=== PATIENT | male | born 1985 | race American Indian/Alaskan Native ===

== ENCOUNTER 2021-02-20 19:26 | Emergency (ER) | payer SELFPAY ==
[2021-02-20] MEDS ORDERED: ACETAMINOPHEN 500 MG TAB PO ONE (20:33)
[2021-02-20] MEDS ORDERED: IBUPROFEN 800 MG TAB PO ONE (20:33)
[2021-02-20] MEDS ORDERED: dexAMETHasone 20 MG/5 ML VIAL IV ONE (21:49)
[2021-02-20] MEDS ORDERED: AMPICILLIN/SULBACTA 3GM/100ML 3 GM/100 ML BAG IV ONE (21:49)
--- NOTE | 2021-02-20 21:52 | Emergency Department Report ---
ED General Adult HPI - General Chief complaint: Sore Throat Stated complaint: SORE THROAT Time Seen by Provider: 02/20/21 21:40 Source: patient Mode of arrival: Ambulatory Limitations: No Limitations - History of Present Illness Initial comments: 35-year-old male patient presents to the emergency department with complaints of progressively worsening sore throat for approximately 10 days. No known sick contacts. No recent travel. No current steroid or antibiotic use. Today, patient developed difficulty swallowing and noticed changes in his voice, prompting him to come to the emergency department. Denies neck stiffness, cough, wheezing, vomiting, rash. Denies all other complaints at this time. - Related Data Previous Rx's Medication Instructions Recorded Last Taken Type Benzocaine/Menthol [Cepacol Sore 1 each MM Q2H PRN #1 packet 11/24/15 Unknown Rx Throat Lozenge] traMADoL [Ultram 50 MG tab] 50 mg PO Q6HR PRN #20 tablet 11/24/15 Unknown Rx Allergies Allergy/AdvReac Type Severity Reaction Status Date / Time No Known Allergies Allergy Unverified 11/29/14 16:00 ED Review of Systems ROS: Stated complaint: SORE THROAT Other details as noted in HPI Other: GENERAL: Negative for fever, chills, weight change, anorexia, fatigue. ENT: Positive for sore throat, dysphagia, voice changes. CARDIOVASCULAR: Negative for chest pain, palpitations, lower extremity swelling. PULMONARY: Negative for cough, dyspnea, wheezing, orthopnea, cyanosis. GASTROINTESTINAL: Negative for abdominal pain, nausea, vomiting, diarrhea, constipation. MUSCULOSKELETAL: Negative for joint pain, joint swelling, myalgias, back pain, neck pain. NEUROLOGICAL: Negative for headache, seizure, syncope, paresthesias, weakness. INTEGUMENTARY: Negative for erythema, rash, diaphoresis, laceration, ecchymosis. HEMATOLOGICAL: Negative for hemoptysis, hematemesis, hematochezia, hematuria. PSYCHIATRIC: Negative for hallucinations, suicidal ideation, homicidal ideation, anxiety, depression. ED Past Medical Hx - Past Medical History Hx Congestive Heart Failure: No Hx Diabetes: No Hx Asthma: No Hx COPD: No - Social History Smoking Status: Current Some Day Smoker Substance Use Type: Alcohol, Cocaine, Marijuana - Medications Home Medications: Home Medications Medication Instructions Recorded Confirmed Last Taken Type Benzocaine/Menthol [Cepacol Sore 1 each MM Q2H PRN #1 packet 11/24/15 Unknown Rx Throat Lozenge] traMADoL [Ultram 50 MG tab] 50 mg PO Q6HR PRN #20 tablet 11/24/15 Unknown Rx ED Physical Exam - General Limitations: No Limitations - Other Other exam information: General: Awake and alert. Appears uncomfortable. Head: Atraumatic, normocephalic. Eyes: EOMI. Pupils are equal and round. Normal sclera and conjunctiva. ENT: Oral mucosa is moist. Significant tonsillar edema, more pronounced on the right, no exudate. Patient endorses difficulty speaking and swallowing, no trismus. Neck: Supple. Right anterior cervical lymphadenopathy. Pulmonary: No respiratory distress. Clear to auscultation bilaterally. Cardiac: Regular rate and rhythm. Pulses are palpable and equal bilaterally. No lower extremity cyanosis or edema. Skin: Warm and dry. No rashes. Abdomen: Soft, non-tender, non-protuberant. No guarding, rigidity, or rebound. Bowel sounds are normal. No organomegaly or masses noted. Back: Normal alignment. No CVA tenderness. Extremities: Symmetrical. Full range of motion intact. Neurological: Alert and oriented, appropriately interactive, no focal deficits. Psych: Cooperative. Appropriate mood and affect. Speech is evenly metered. Thoughts are logically construed. ED Course Vital Signs 02/20/21 20:30 Temperature 102.9 F H Pulse Rate 115 H Respiratory 18 Rate Blood Pressure 139/82 O2 Sat by Pulse 97 Oximetry ED Medical Decision Making - Lab Data Result diagrams: 02/20/21 21:54 02/20/21 21:54 - Radiology Data [facility] [address] [place] [address] Cat Scan Report Signed Patient: MARAH TEJEDA MR#: [id number] : 1985 Acct:[id number] Age/Sex: 35 / M ADM Date: 02/20/21 Loc: ED Attending Dr: Ordering Physician: TRANG VALENCIA Date of Service: 02/20/21 Procedure(s): CT neck w con Accession Number(s): [id number] cc: TRANG VALENCIA CT NECK WITH CONTRAST HISTORY: Fever, tachycardia, edema. COMPARISON: None. TECHNIQUE: Routine CT of the neck is performed following intravenous contrast. All CT scans at this location are performed using CT dose reduction for ALARA by means of automated exposure control. CONTRAST: 100 mL Omnipaque 300 FINDINGS: There is a 2.5 x 1.6 x 3.0 cm right-sided peritonsillar abscess. There is also right sided level 2 adenopathy measuring up to 2.0 x 1.8 cm, likely reactive. There is adjacent pharyngeal edema consistent with pharyngitis. There is mild narrowing of the pharyngeal airway without critical stenosis. There is no appreciable venous thrombosis. Visualized portions of the brain appear normal. Multiple dental caries are present. Visualized lung apices are clear. There are no aggressive appearing bone lesions. There is moderate degenerative disc disease at C5-6 and cervical spine. IMPRESSION: 1. Pharyngitis with a 3 cm right-sided peritonsillar abscess. 2. Right-sided cervical adenopathy is likely reactive. Signer Name: Stevan Castellanos MD Signed: 02/21/2021 1:37 AM Workstation Name: [id number] Transcribed By: ANUPAMA Dictated By: Stevan Castellanos MD Electronically Authenticated By: Stevan Castellanos MD Signed Date/Time: 02/21/21136 DD/ 3 TD/TT: - Medical Decision Making Differential diagnosis including but not limited to: strep pharyngitis, viral pharyngitis, peritonsillar abscess, epiglottitis, Candelario's angina, mononucleosis, otitis media, allergic rhinitis On reevaluation, patient is stable. No hypoxia, no respiratory distress. Rapid strep test is negative. White blood cell count is 23.4. Lactic acid within normal limits. CT of the neck confirms suspected diagnosis of right peritonsillar abscess, measuring approximately 3 cm. Given IV Unasyn and IV D ecadron. Patient will require emergent ENT consultation which is unavailable at this facility. Case discussed with Dr. Jackson, ENT specialist at [facility], who agrees to evaluate patient and requests transfer to [facility] emergency department. Case discussed with Dr. Nye, attending emergency physician, who agrees to assume care of patient upon arrival to [facility]. Consent for transfer obtained from patient. Ground transportation arranged. 02:14: Paged [place] transfer center. 02:28: Transfer center paged ENT 04:45: Spoke with Dr. Jackson, ENT surgeon. 04:57: Spoke with Dr. Nye, attending emergency physician. Case discussed with Dr. Robert, attending emergency physician, who agrees with diagnostic work-up and plan of care. Critical care attestation.: If time is entered above; I have spent that time in minutes in the direct care of this critically ill patient, excluding procedure time. ED Disposition Clinical Impression: Peritonsillar abscess Disposition: DC/TX-70 ANOTHER TYPE HLTHCARE Is pt being admited?: No Condition: Serious Time of Disposition: 04:57
[2021-02-20 22:25] LABS: Alanine Aminotransferase 10 units/L (7-56); Albumin 3.6 g/dL (3.9-5); BUN/Creatinine Ratio 11; Blood Urea Nitrogen 13 mg/dL (9-20); Calcium 9.4 mg/dL (8.4-10.2); Hemolysis Index 2
[2021-02-20 22:37] LABS: Hematocrit 42.2 % (35.5-45.6); Hemoglobin 14.3 gm/dl (11.8-15.2); Mean Corpuscular HGB Conc 34 % (32-34); Mean Corpuscular Volume 90 fl (84-94); Platelet Count 453 K/mm3 (140-440); Red Blood Count 4.68 M/mm3 (3.65-5.03); Red Cell Distribution Width 12.7 % (13.2-15.2)
[2021-02-20] MEDS ORDERED: SODIUM CHLORIDE 0.9% 1000 ML 1,000 ML IV ONE (23:12)
[2021-02-20 23:17] LABS: RBC Morphology Normal; Total Cells Counted 100
--- NOTE | 2021-02-21 01:42 | Cat Scan Report ---
CT NECK WITH CONTRAST HISTORY: Fever, tachycardia, edema. COMPARISON: None. TECHNIQUE: Routine CT of the neck is performed following intravenous contrast. All CT scans at this [facility] are performed using CT dose reduction for ALARA by means of automated exposure control. CONTRAST: 100 mL Omnipaque 300 FINDINGS: There is a 2.5 x 1.6 x 3.0 cm right-sided peritonsillar abscess. There is also right sided level 2 ad enopathy measuring up to 2.0 x 1.8 cm, likely reactive. There is adjacent pharyngeal edema consistent with pharyngitis. There is mild narrowing of the pharyngeal airway without critical stenosis. There is no appreciable venous thrombosis. Visualized portions of the brain appear normal. Multiple dental caries are present. Visualized lung a pices are clear. There are no aggressive appearing bone lesions. There is moderate degenerative disc disease at C5-6 and cervical spine. IMPRESSION: 1. Pharyngitis with a 3 cm right-sided peritonsillar abscess. 2. Right-sided cervical adenopathy is likely reactive. Signer Name: Stevan Castellanos MD Signed: 02/21/2021 1:37 AM Workstation Name: [id number]
[2021-02-21 05:51] VITALS: BP 107/58
== END 2021-02-21 09:01 | disposition other institution (70) ==
LOC: ED 19:26
DX: J36 Peritonsillar abscess (principal); F17.200 Nicotine dependence, unspecified, uncomplicated; F12.90 Cannabis use, unspecified, uncomplicated; F14.90 Cocaine use, unspecified, uncomplicated; Z72.89 Other problems related to lifestyle; Z79.899 Other long term (current) drug therapy
CPT/HCPCS: 36415; 70491; 80053; 82140; 83735; 85007; 85025; 87040; 87116; 87430; 96361; 96365; 96375; 99285; J0295; J1100; J7030; Q9967